=== PATIENT | male | born 1995 | race Caucasian/White ===

== ENCOUNTER → 2016-09-14 | Outpatient (CLI) | payer OTHER ==
--- NOTE | 2016-09-14 09:33 | DIAGNOSTIC IMAGING REPORT ---
LEFT SHOULDER MIN 2 VIEWS CLINICAL HISTORY: LEFT SHOULDER PAIN COMPARISON: None. DISCUSSION: No fractures or dislocations are visualized. There is equivocal spurring involving the inferior margin of the scapular glenoid. IMPRESSION: No acute fractures or dislocations identified. Electronically signed by: Herson Ibarra M.D. 09/14/2016 9:32 AM Dictated Date/Time: 09/14/2016 9:31 AM
== END | disposition home or self-care (01) ==
LOC: C.RDSM 17:11
PROVIDERS: ATTEND Orthopaedic Surgery
DX: M25.512 Pain in left shoulder (principal)

== ENCOUNTER → 2016-11-08 | Outpatient (CLI) | payer OTHER ==
--- NOTE | 2016-11-08 16:34 | DIAGNOSTIC IMAGING REPORT ---
MRI OF THE RIGHT SHOULDER CLINICAL HISTORY: Right shoulder pain. COMPARISON STUDY: MRI of the right shoulder dated 06/08/2016. TECHNIQUE: MRI of the right shoulder was performed utilizing various T1 and T2 weighted sequences in the axial, sagittal, coronal planes. IV contrast was not administered for this examination. FINDINGS: Rotator cuff: The supraspinatus and intraspinous tendons are preserved. The teres minor and subscapularis tendons are intact. There is no subacromial or subdeltoid bursal fluid. The acromioclavicular joint is unremarkable. Biceps tendon: The long head of the biceps tendon is normal in signal intensity and located within the bicipital groove. The anchor is maintained. Labrum: There is a large SLAP tear of the glenoid labrum, which also involves the anterior/inferior aspect of the labrum. Shoulder joint: There is a small joint effusion. A bony Bankart lesion is identified, and a small osteochondral defect is again seen arising from the anterior glenoid. This is best visualized on axial image #14. Mild marrow edema is identified within the anterior and posterior aspect of the humeral head. Musculature and soft tissues: The musculature of the shoulder is normal in bulk and signal intensity. No atrophy is seen. IMPRESSION: 1. Again seen is a bony Bankart lesion with a small osteochondral defect arising from the anterior glenoid. 2. Unchanged appearance of a large complex SLAP tear of the gland labrum as above. 3. Joint effusion is noted. The rotator cuff appears intact. 4. Marrow edema is now identified within the anterior and posterior aspect of the humeral head.. Electronically signed by: García Byers M.D. 11/08/2016 4:32 PM Dictated Date/Time: 11/08/2016 4:27 PM
== END | disposition home or self-care (01) ==
LOC: C.MRIBC 15:41
PROVIDERS: ATTEND Orthopaedic Surgery
DX: M25.511 Pain in right shoulder (principal)

== ENCOUNTER → 2017-06-12 | Outpatient (CLI) | payer OTHER ==
--- NOTE | 2017-06-12 23:18 | DIAGNOSTIC IMAGING REPORT ---
R UPPER EXT JOINT WITHOUT CLINICAL HISTORY: 21 years-old Male presenting with SHOULDER PAIN. TECHNIQUE: Multisequence, multiplanar MR imaging of the right shoulder was performed without the use of intravenous contrast. IV contrast: None. COMPARISON: 11/08/2016. FINDINGS: Localizer images: Unremarkable. Interval resolution of bone marrow edema, which was previously evidence in the anterior humeral head. No new sites of bony edema. Minimal increased signal intensity and irregularity noted at the anterior inferior glenoid articular cartilage at the site of prior glenoid labral articular disruption (series 3 images 19 and 20). The anterior inferior labrum remains appropriately positioned with adjacent scar tissue and cystic change in the subcoracoid region. Redemonstration of linear high signal intensity undermining the superior labrum as well as the biceps labral complex extending in a superior-medial to inferior-lateral orientation. This configuration could suggest a prominent sublabral recess, though given the history, a healed prior injury could potentially have this appearance. No evidence of a new labral abnormality. Supraspinatus tendon intact. Increased signal intensity in the critical zone and insertional portion of the junctional fibers of the infraspinatus. Small partial bursal surface tears of the insertional fibers and articular surface tears of critical zone fibers are difficult to exclude, however, no full-thickness tear is evident. Linear intrasubstance increased signal intensity at the junctional fibers could suggest laminar interstitial tear. Teres minor tendon intact. Subscapularis tendon intact including the transverse ligament. The long head of the biceps tendon is well seated in the intertubercular groove. Short head of the biceps tendon intact. No shoulder joint effusion. Acromioclavicular joint normal. Concave undersurface of the acromion. IMPRESSION: 1. Interval improved appearance of the glenoid labral articular disruption (Bankart lesion variant) of the anterior inferior labrum. This may suggest interval surgical intervention or healing. 2. Resolved bone marrow edema. 3. Findings could suggest laminar interstitial tear versus small partial tears of the anterior junctional fibers of the infraspinatus tendon. No other evidence of rotator cuff tear. 4. Redemonstration of linear high signal intensity undermining the superior labrum as well as the biceps labral complex extending in a superior-medial to inferior-lateral orientation. This configuration could suggest a prominent sublabral recess, though given the history, a healed prior injury could potentially have this appearance. Electronically signed by: Calixto Dodd M.D. 06/12/2017 11:17 PM Dictated Date/Time: 06/12/2017 10:06 PM
== END | disposition home or self-care (01) ==
LOC: C.MRI 20:06
PROVIDERS: ATTEND Orthopaedic Surgery
DX: S43.491A Other sprain of right shoulder joint, initial encounter (principal); X58.XXXA Exposure to other specified factors, initial encounter; R93.7 Abnormal findings on diagnostic imaging of other parts of musculoskeletal system

== ENCOUNTER → 2017-06-27 | Outpatient (CLI) | payer OTHER ==
--- NOTE | 2017-06-27 14:15 | DIAGNOSTIC IMAGING REPORT ---
R UPPER EXTREMITY WITHOUT CLINICAL HISTORY: 21 years-old Male presenting with RT SHOULDER PAIN. TECHNIQUE: Multidetector CT of the right shoulder was performed without the use of intravenous contrast. IV contrast: None. A dose lowering technique was used consistent with the principles of ALARA (as low as reasonably achievable). COMPARISON: MR from 06/12/2017. CT DOSE (mGy.cm): The estimated cumulative dose is 932.18 mGy.cm. FINDINGS: Biomedical Electronics Technician topogram: Unremarkable. 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 Articular disruption evident with a defect of the articular surface measuring 7 x 27 x 3 mm in an obliquely oriented linear distribution extending from the anterior superior to the anterior inferior bony glenoid (series 202 image 37), from 2:00 to 6:00. This correlates to the clinical labral articular disruption injury pattern seen on MR. No other fracture. Mild superior subluxation of the humeral head. Evaluation of articular cartilage and the labrum is greatly limited on CT. Normal muscle bulk. No large shoulder joint effusion. IMPRESSION: Incomplete bony bridging of the glenoid labrum articular disruption injury of the anterior inferior labrum (Bankart lesion variant). Lack of bony bridging results in an obliquely oriented articular surface defect. This implies instability of the labral fragment. Electronically signed by: Calixto Dodd M.D. 06/27/2017 2:14 PM Dictated Date/Time: 06/27/2017 2:05 PM
== END | disposition home or self-care (01) ==
LOC: C.CTS 13:39
PROVIDERS: ATTEND Orthopaedic Surgery
DX: M25.511 Pain in right shoulder (principal)

== ENCOUNTER → 2017-09-05 | Outpatient (CLI) | payer OTHER | END | disposition home or self-care (01) | LOC: C.RDSM 08:00 | PROVIDERS: ATTEND Family Medicine | DX: M79.642 Pain in left hand (principal) ==